=== PATIENT | female | born 1980 | race Caucasian/White ===

== ENCOUNTER 2018-01-15 21:47 | Emergency (ER) | END 2018-01-16 01:29 | disposition home or self-care (01) ==

== ENCOUNTER 2018-01-31 21:28 | Emergency (ER) | END 2018-02-01 01:53 | disposition home or self-care (01) ==

== ENCOUNTER 2018-04-24 04:42 | Emergency (ER) | payer BC ==
[~2018-04-24] VITALS: Ht 170.2 cm; Wt 75.0 kg
[~2018-04-24 04:42] MED LIST: CEPH-443 PO; NAPR-985 PO
[2018-04-24 04:51] VITALS: Ht 170.2 cm; Wt 75.0 kg
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
[2018-04-24] MEDS ORDERED: NITROFURANTOIN (SR) 100 MG CAP PO ONE (06:00)
[2018-04-24 08:26] VITALS: BP 117/78; PULSE 102; RESP 18
== END 2018-04-24 10:00 | disposition home or self-care (01) ==
LOC: E/R 04:42
DX: O9A.219 Injury, poisoning and certain other consequences of external causes complicating pregnancy, unspecified trimester (principal); S01.21XA Laceration without foreign body of nose, initial encounter; Y04.2XXA Assault by strike against or bumped into by another person, initial encounter; Z3A.17 17 weeks gestation of pregnancy
CPT/HCPCS: 12013; 36415; 76801; 81001; 84702; 85025; 86900; 86901; 99284; Z7610

== ENCOUNTER 2018-05-02 02:19 | Emergency (ER) | payer SELFPAY ==
[~2018-05-02] VITALS: Ht 170.2 cm; Wt 71.3 kg
[2018-05-02 02:25] VITALS: BP 125/83; PULSE 100; RESP 18; Ht 170.2 cm; Wt 71.3 kg
[2018-05-02] MEDS ORDERED: MUPI22OI2 TOP (10:42)
== END 2018-05-02 02:28 | disposition left against medical advice (07) ==
LOC: FTE 02:19
DX: Z53.21 Procedure and treatment not carried out due to patient leaving prior to being seen by health care provider (principal)

== ENCOUNTER 2018-05-02 09:53 | Emergency (ER) | payer BC ==
[~2018-05-02] VITALS: Ht 170.2 cm; Wt 71.3 kg
[2018-05-02 09:56] VITALS: BP 134/69; PULSE 101; RESP 16; Ht 170.2 cm; Wt 71.3 kg
[2018-05-02] MEDS ORDERED: MUPI22OI2 TOP (10:42)
--- NOTE | 2018-05-02 10:46 | ERD ---
ER Documentation Chief Complaint Chief Complaint SUTURE REMOVAL TO MIDDLE EYEBROW AREA. PLACED ON 04/24 HPI 37-year-old female presents for suture removal. She had a nasal bridge laceration that was stitched about 8 days ago. She denies fevers or chills. She denies any discharge from the area. Appears that the wound is healing well. ROS All systems reviewed and are negative except as per history of present illness. Medications Home Meds Active Scripts Mupirocin* (Bactroban*) 2% -22 Gram Oint...g., 1 APPLIC TOP BID for skin cut for 7 Days, EA Prov:LEON CLEMENTE DO 05/02/18 Allergies Allergies: Coded Allergies: naproxen (Unverified Allergy, Intermediate, HIVES, 05/02/18) Penicillins (Unverified Allergy, Unknown, 05/02/18) amoxicillin (Unverified Adverse Reaction, Intermediate, 05/02/18) PMhx/Soc Medical and Surgical Hx: pt denies Medical Hx, pt denies Surgical Hx Hx Alcohol Use: No Hx Substance Use: Yes (marijuana) Hx Tobacco Use: Yes Smoking Status: Former smoker Physical Exam Vitals Vital Signs Date Temp Pulse Resp B/P (MAP) Pulse Ox O2 O2 Flow FiO2 Time Delivery Rate 05/02/18 97.5 101 16 134/69 96 09:56 (90) Physical Exam Const: No acute distress Resp: Clear to auscultation bilaterally Cardio: Regular rate and rhythm, no murmurs Skin: Nasal bridge suture site clean dry intact, no signs of infection Ext: No cyanosis, or edema Neur: Awake and alert Psych: Normal Mood and Affect Procedures/MDM Suture Removal by me: Sutures removed with tweezers and scissors without incident. 3 stitches removed from the nasal bridge Wound shows no evidence of infection, foreign body, neurologic injury, vascular injury, open joint or tendon laceration. Patient to follow up PRN. Medical Decision Making: Patient presents for suture removal of stitches over the nasal bridge. The area was clean dry intact, no signs of infection Sutures were removed, see procedure note above Patient appeared well on physical exam. Patient given prescription for Bactroban Wound care instructions given Patient advised to follow up with PCP in 1-2 days. Patient advised to return to ED for new or worsening symptoms. Patient stable on discharge from the ED. Disclaimer: Inadvertent spelling and grammatical errors are likely due to EHR/dictation software use and do not reflect on the overall quality of patient care. Also, please note that the electronic time recorded on this note does not necessarily reflect the actual time of the patient encounter. Departure Diagnosis: Primary Impression: Encounter for removal of sutures Condition: Fair Patient Instructions: Suture Removal, No Complication Referrals: [facility] YOU HAVE RECEIVED A MEDICAL SCREENING EXAM AND THE RESULTS INDICATE THAT YOU DO NOT HAVE A CONDITION THAT REQUIRES URGENT TREATMENT IN THE EMERGENCY DEPARTMENT. FURTHER EVALUATION AND TREATMENT OF YOUR CONDITION CAN WAIT UNTIL YOU ARE SEEN IN YOUR DOCTORS OFFICE WITHIN THE NEXT 1-2 DAYS. IT IS YOUR RESPONSIBILITY TO MAKE AN APPOINTMENT FOR FOLOW-UP CARE. IF YOU HAVE A PRIMARY DOCTOR --you should call your primary doctor and schedule an appointment IF YOU DO NOT HAVE A PRIMARY DOCTOR YOU CAN CALL OUR PHYSICIAN REFERRAL HOTLINE AT IF YOU CAN NOT AFFORD TO SEE A PHYSICIAN YOU CAN CHOSE FROM THE FOLLOWING [facility] [address] [facility]. [facility] [address] [employer] [facility]. [facility] [address] [facility] [address]. [facility] [address] [facility]. [facility]. [address] Additional Instructions: Call your primary care doctor TOMORROW for an appointment during the next 1-2 days.See the doctor sooner or return here if your condition worsens before your appointment time. LEON CLEMENTE DO May 02, 2018 10:46
== END 2018-05-02 11:25 | disposition home or self-care (01) ==
LOC: FTE 09:53
DX: Z48.02 Encounter for removal of sutures (principal); Z87.891 Personal history of nicotine dependence
CPT/HCPCS: 99281

== ENCOUNTER 2018-09-21 06:14 | Inpatient (IN) | payer BC ==
[~2018-09-21] VITALS: Ht 170.2 cm; Wt 89.5 kg
[~2018-09-21 06:14] MED LIST changes: -CEPH-443 PO; +IBUP-1542 PO; +MUPI22OI2 TOP; -NAPR-985 PO; +NITR100C6 PO
[2018-09-21 06:20] VITALS: Ht 170.2 cm; Wt 89.5 kg
[2018-09-21] MEDS ORDERED: OXYTOCIN 30 UNITS/LR 500 ML IV SCH ×3 (06:30→09:04)
[2018-09-21] MEDS ORDERED: MISOPROSTOL 200 MCG TAB PR PRN ×2 (06:30→09:30)
[2018-09-21] MEDS ORDERED: METHYLERGONOVINE 0.2 MG INJ IM PRN ×2 (06:30→09:30)
[2018-09-21] MEDS ORDERED: OXYTOCIN 30 UNITS/LR 500 ML IV PRN ×2 (06:30→09:30)
[2018-09-21] MEDS ORDERED: CARBOPROST 250 MCG INJ IM PRN ×2 (06:30→09:30)
[2018-09-21] MEDS ORDERED: LIDOCAINE 1% (MPF) 30 ML INJ INJ PRN (06:30)
[2018-09-21] MEDS ORDERED: BUTORPHANOL 2 MG INJ IV PRN (06:30)
[2018-09-21] MEDS ORDERED: CLINDAMYCIN 900 MG/D5W (PMX) 50 ML IVPB SCH (06:30)
[2018-09-21 06:36] VITALS: BP 106/67; PULSE 97; RESP 20
[2018-09-21] MEDS: LACTATED RINGER'S 1,000 ML IV SCH ×2 (06:46→06:57)
[2018-09-21] MEDS ORDERED: VANCOMYCIN 1 GM (PMX) 250 ML IVPB SCH (07:00)
[2018-09-21] MEDS ORDERED: LACTATED RINGER'S 1,000 ML IV* SCH (09:04)
--- NOTE | 2018-09-21 09:04 | HP ---
Date/Time of Note Date/Time of Note DATE: 09/21/18 TIME: 08:59 OB - History Hx of Present Free Text/Dictation 37-year-old 5 para 3 at 39 weeks and 2 days of gestation with estimated date of delivery September 26, 2018 Patient presents in active labor with regular contractions She reports positive movement, denies vaginal bleeding or leaking fluid Patient has had No care and the estimated date of delivery is based on an earlier ultrasound in April 2018 done here at [facility] GBS status is unknown Patient is allergic to both penicillin and clindamycin Care: None Obstetrical Complications: None Medical Complications: None Past Family/Social History * Past Medical, Surgical, Family and Obstetric Histories are noncontributory to this admission OB Admission Exam Vital Signs Vital Signs Vital Signs Date Temp Pulse Resp B/P (MAP) Pulse Ox O2 O2 Flow FiO2 Time Delivery Rate 09/21/18 97.1 97 20 106/67 Room Air 06:36 (80) Physical Exam HEENT: WNL Heart: Rhythm Normal Lungs: Clear, Equal Abdomen: WNL Extremities: Normal Reflexes: Normal Cervical Dilatation: 8cm Effacement: 75% Station: -2 Membranes: Intact Heart Rate: 140's Accelerations: Accelerations Present Decelerations: No Decelerations Varibility: Moderate Contractions on Admission: < 5 Minutes Apart Intensity: Moderate Last 72 hours Lab Results CBC & BMP 09/21/18 06:46 PROCEDURE: US OB. CLINICAL INDICATION: Size and dates , pain TECHNIQUE: Multiple sonographic images of the pelvis and gravid uterus were obtained. The images were reviewed on a PACS workstation. COMPARISON: No prior studies are available for comparison. FINDINGS: Gestation: Single live intrauterine gestation. Cardiac activity: 156 beats per minute. Presentation: breech Placenta: Location: Anterior. Appearance: No previa or abruption. MVP = 4.0 cm Measurements: BPD = 3.9 cm, 17 weeks and 6 days HC = 13.9 cm, 17 weeks and 2 days AC = 12.4 cm, 18 weeks and 0 days FL = 2.6 cm, 18 weeks and 0 days Gestational Age: AUA estimated gestational age: 17 weeks 6 days LMP estimated gestational age: 16 weeks 0 days AUA estimated date of delivery: 09/26/18 The EFW = 215 g RPTAT: AA IMPRESSION: Single live intrauterine gestation of 17 weeks 6 days by ultrasound criteria. .Bernardo Mendes MD, MD Date Time Electronically viewed and signed by .Bernardo Mendes MD, on 04/24/2018 05:49 .S/ CC: TREVOR SAGE [phone] OB Assessment/Plan Reason for admission: active labor Plan: Expectant Management Other plan: Admit to labor and delivery Antibiotics for GBS prophylaxis Pain Meds as needed VASHTI LINDO MD Sep 21, 2018 09:04
--- NOTE | 2018-09-21 09:07 | LDN ---
Date/Time of Note Date/Time of Note DATE: 09/21/18 TIME: 09:06 Delivery Summary Full-term Placenta Delivered: Spontaneously Meconium: Light Episiotomy: No Laceration repair: First-degree laceration repaired with 3-0 chromic Anesthesia type: Local Sponge & Needle done & correct: Yes All needle counts correct: Yes Any foreign bodies felt in the: No Delivery Information Sex Sex: female Apgars 1 Minute: 8 5 Minute: 9 Suctioning Nose & mouth suctioned at theodora: Yes Delee suction performed: Yes Umbilical Cord Umbilical cord with: 3 Vessels Cord presentations: nuchal cord (X1 reduced manually) Cord Blood was obtained: Yes Mother & Baby Disposition Disposition Baby's weight 8 pounds 5 ounces/3780 g Mom & Baby to Maternity; Good: Yes Baby to NICU: No VASHTI LINDO MD Sep 21, 2018 09:07
[2018-09-21] MEDS ORDERED: SENNA/DOCUSATE NA (8.6MG/50MG) TAB PO PRN (09:30)
[2018-09-21] MEDS ORDERED: ACETAMINOPHEN 325 MG TAB PO PRN (09:30)
[2018-09-21] MEDS ORDERED: BENZOCAINE 20% 56 ML SPRAY TOP PRN (09:30)
[2018-09-21] MEDS ORDERED: WITCH HAZEL/GLYCERIN PAD PR PRN (09:30)
[2018-09-21] MEDS ORDERED: ONDANSETRON 4 MG INJ IV PRN (09:30)
[2018-09-21] MEDS ORDERED: LANOLIN HPA 1 PKT TOP PRN (09:30)
[2018-09-21] MEDS ORDERED: DIBUCAINE 1% 30 GM OINT TOP PRN (09:30)
[2018-09-21] MEDS ORDERED: MAGNESIUM HYDROXIDE 30ML CUP PO PRN (09:30)
[2018-09-21] MEDS: ACETAMINOPHEN 325 MG TAB PO PRN (10:19)
[2018-09-21 11:10] VITALS: BP 103/59; PULSE 73; RESP 18
[2018-09-21 12:00] VITALS: BP 112/69; PULSE 82; RESP 18
[2018-09-21 16:55] VITALS: BP 117/65; PULSE 72; RESP 18
[2018-09-21 20:15] VITALS: BP 109/68; PULSE 85; RESP 17
[2018-09-22 04:00] VITALS: BP 117/65; PULSE 89; RESP 18
[2018-09-22] MEDS: ACETAMINOPHEN 325 MG TAB PO PRN (05:37)
[2018-09-22 09:10] VITALS: BP 125/70; PULSE 87; RESP 18
--- NOTE | 2018-09-22 11:26 | QN ---
Documentation Comment day #1 Status post Patient stable and afebrile Vital signs stable VS - Last 72 Hours, by Label Date Temp Pulse Resp B/P (MAP) Pulse Ox O2 O2 Flow FiO2 Time Delivery Rate 09/22/18 98.0 89 18 117/65 Room Air 04:00 (82) 09/21/18 98.1 85 17 109/68 Room Air 20:15 (82) 09/21/18 98.2 72 18 117/65 16:55 (82) 09/21/18 82 18 112/69 Room Air 12:00 (83) 09/21/18 98.0 73 18 103/59 Room Air 11:10 (74) 09/21/18 97.1 97 20 106/67 Room Air 06:36 (80) Hematology - 72 Hrs Test 09/21/18 06:46 09/22/18 07:03 Hematocrit 37.7 % (37.0-47.0) 35.2 % (37.0-47.0) L Hemoglobin 12.8 g/dl (12.0-16.0) 11.4 g/dl (12.0-16.0) L Mean Corpuscular 31.3 pg (29.0-33.0) 30.5 pg (29.0-33.0) Hemoglobin Mean Corpuscular 34.0 g/dl (32.0-37.0) 32.4 g/dl (32.0-37.0) Hemoglobin Concent Mean Corpuscular Volume 92.2 fl (82.0-101.0) 94.1 fl (82.0-101.0) Mean Platelet Volume 11.8 fl (7.4-10.4) #H 11.8 fl (7.4-10.4) H Platelet Count 201 10^3/UL (140-415) # 194 10^3/UL (140-415) Red Blood Count 4.09 10^6/ul (4.20-5.40) 3.74 10^6/ul (4.20-5.40) L L Red Cell Distribution 14.1 % (11.5-14.5) 14.4 % (11.5-14.5) Width White Blood Count 13.3 10^3/ul (4.8-10.8) 13.3 10^3/ul (4.8-10.8) H H Abdomen soft, fundus firm Perineum intact Extremities nontender Assessment and plan Patient stable and doing well Continue with routine care VASHTI LINDO MD Sep 22, 2018 11:26
[2018-09-22 15:25] VITALS: RESP 18
[2018-09-22 15:45] VITALS: BP 120/76; PULSE 78; RESP 18
[2018-09-22] MEDS: TRIMETHOPRIM/SULFAMETHOX (DS) TAB PO SCH (22:53)
[2018-09-23 04:00] VITALS: BP 110/62; PULSE 98; RESP 20
[2018-09-23 08:00] VITALS: BP 103/63; PULSE 91; RESP 16
[2018-09-23] MEDS: TRIMETHOPRIM/SULFAMETHOX (DS) TAB PO SCH (08:48)
[2018-09-23] MEDS: NITROFURANTOIN (SR) 100 MG CAP PO SCH ×2 (12:03→21:31)
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
[2018-09-23 16:00] VITALS: BP 100/68; PULSE 99; RESP 18
[2018-09-23] MEDS: ACETAMINOPHEN 325 MG TAB PO PRN (16:29)
[2018-09-23 20:00] VITALS: BP 105/67; PULSE 95; RESP 18
[2018-09-24 04:00] VITALS: BP 107/76; PULSE 92; RESP 18
[2018-09-24 08:00] VITALS: BP 110/67; PULSE 96; RESP 18
[2018-09-24] MEDS: NITROFURANTOIN (SR) 100 MG CAP PO SCH (09:16)
--- NOTE | 2018-09-25 17:01 | DELSUM ---
Delivery Summary A-C Datetime Report Generated by CPN: 09/25/2018 17:01 DELIVERY PERSONNEL Body Technician/Painter: Yuliana Torres MATERNAL INFORMATION Delivery Anesthesia: Local Medications in Delivery: LIDOCAINE; OXYTOCIN, 30 UNITS, IN 500ML LR Delivery QBL (ml): 200 Placenta Cultured: No Maternal Complications: Other LABOR SUMMARY EDC: 09/26/2018 00:00 No. Babies in Womb: 1 Attempted: No Labor Anesthesia: None LABOR INFORMATION Reason for Induction: Not Applicable Onset of Labor: 09/20/2018 23:00 Complete Dilatation: 09/21/2018 06:47 Group B Beta Strep: Not Done Antibiotics # of Doses: 0 Steroids Given: None Reason Steroids Not Administered: Not Applicable MEMBRANES Membranes Rupture Method: Spontaneous Rupture of Membranes: 09/21/2018 06:39 Length of Rupture (hr): 0.27 Amniotic Fluid Color: Light Meconium Amniotic Fluid Amount: Large Amniotic Fluid Odor: None STAGES OF LABOR Stage 1 hr: 7 Stage 1 min: 47 Stage 2 hr: 0 Stage 2 min: 8 Stage 3 hr: 0 Stage 3 min: 6 Total Time in Labor hr: 8 Total Time in Labor min: 1 VAGINAL DELIVERY Episiotomy: None Laceration Extension: First Degree Laceration Type: Perineal Laceration Repair: Yes (Annotations: Data stored by N on behalf of user) Initial Vag Sponge Count: 10 Final Vag Sponge Count: 10 Initial Vag Sharps Count: 1+1 Final Vag Sharps Count: 2 Sponge Count Correct: Yes Sharps Count Correct: Yes BABY A INFORMATION Infant Delivery Date/Time: 09/21/2018 06:55 Method of Delivery: Vaginal Born in Route : No : N/A Forceps: N/A Vacuum Extraction: N/A Shoulder Dystocia : N/A SHOULDER DYSTOCIA BABY A Delivery Date/Time: 09/21/2018 06:55 PRESENTATION/POSITION BABY A Presentation: Cephalic Cephalic Presentation: Vertex Breech Presentation: N/A PLACENTA INFORMATION BABY A Placenta Delivery Time : 09/21/2018 07:01 Placenta Method of Delivery: Expressed Placenta Status: Delivered SCORES BABY A Heart Rate 1 min: >100 bpm Resp Effort 1 min: Good Cry Reflex Irritability 1 min: Cough/Sneeze/Pulls Away Muscle Tone 1 min: Active Motion Color 1 min: Blue/Pale Resuscitation Effort 1 min: Tactile Stimulation SCORE 1 MIN: 8 Heart Rate 5 min: >100 bpm Resp Effort 5 min: Good Cry Reflex Irritability 5 min: Cough/Sneeze/Pulls Away Muscle Tone 5 min: Active Motion Color 5 min: Body Bowen, Extremit Blue Resuscitation Effort 5 min: Tactile Stimulation SCORE 5 MIN: 9 INFANT INFORMATION BABY A Gestational Age at Delivery: 39.2 Gestational Status: Full Term- 39- 40.6 Weeks Outcome : Liveborn, with signs of life Infant Condition : Stable Sex: Female IDENTIFICATION/MEDS BABY A ID Band Number: [id number] ID Band Location: Right Leg; Left Arm Sensor Applied: Yes Sensor Number: [id number] Sensor Location : Cord Clamp Vitamin K Given : Not Given Erythromycin Given: Not Given WEIGHT/LENGTH BABY A Birthweight (gm): 3780 Infant Weight (lb): 8 Weight (oz): 5 Length (in): 19.50 Infant Length (cm): 49.53 CORD INFORMATION BABY A No. Cord Vessels: 3 Nuchal Cord : Around Neck x1, Loose Cord Blood Taken: Yes Suction: Mouth; Nose ASSESSMENT BABY A Complications: Meconium Physical Findings at Delivery: Caput Succedaneum; Molding of the Head; Within Normal Limits Respirations: Appears Normal University Internship/ALS Called : Yes Care By: CHRIS OLIVEIRA Transferred To: Remains with Mother
== END 2018-09-24 17:00 | disposition home or self-care (01) | DRG 806 ==
LOC: OBT 06:14 → L-D 06:15 → OBT 06:24 → PP1 11:05
PROVIDERS: ADMIT Obstetrics & Gynecology Gynecology; ATTEND Obstetrics & Gynecology Gynecology
PROC: 10E0XZZ Delivery of Products of Conception, External Approach (ICD-10-PCS; principal; 2018-09-21)
PROC: 0HQ9XZZ Repair Perineum Skin, External Approach (ICD-10-PCS; 2018-09-21)
DX: O75.3 Other infection during labor (principal); O99.324 Drug use complicating childbirth; O69.81X0 Labor and delivery complicated by cord around neck, without compression, not applicable or unspecified; O70.0 First degree perineal laceration during delivery; B96.20 Unspecified Escherichia coli [E. coli] as the cause of diseases classified elsewhere; F15.90 Other stimulant use, unspecified, uncomplicated; Z3A.39 39 weeks gestation of pregnancy; Z37.0 Single live birth
CPT/HCPCS: 80307; 81001; 85025; 85610; 85730; 86592; 86703; 86762; 86803; 86850; 86900; 86901; 87086; 87340; 88307; 99464; G0463; J2590; J3370; J7120